=== PATIENT | female | born 1955 | race African-American/Black ===

== ENCOUNTER 2024-10-16 11:19 | Emergency (ER) | payer MEDICARE, MEDICAID ==
[~2024-10-16] VITALS: Ht 162.6 cm; Wt 91.0 kg
[~2024-10-16 11:19] MED LIST: AMLO5TAB88 PO; BENA40TA91 PO; FAMO-135 PO; GLIM4TAB36 PO; LIP40 PO; METF-416 PO; METO25TA6 PO; PIOG15TA66 PO; SUCR1TAB30 PO; SULF1TAB47 MT
[2024-10-16 11:27] VITALS: TEMP 36.9; O2SAT 100
[2024-10-16 11:30] VITALS: O2SAT 98
[2024-10-16] MEDS ORDERED: CELE-116 MT (12:22)
[2024-10-16] MEDS ORDERED: CEPH500C2 MT (12:22)
[2024-10-16] MEDS: ACETAMINOPHEN 325MG TABLET PO ONE (12:29)
[2024-10-16 12:30] VITALS: BP 152/61; PULSE 72; RESP 12
[2024-10-16] MEDS: KETOROLAC 30MG/ML VIAL IM ONE (12:30)
== END 2024-10-16 12:57 | disposition home or self-care (01) ==
LOC: ER 11:19
DX: L03.116 Cellulitis of left lower limb (principal); E11.9 Type 2 diabetes mellitus without complications; I10 Essential (primary) hypertension; Z79.84 Long term (current) use of oral hypoglycemic drugs; Z79.899 Other long term (current) drug therapy
CPT/HCPCS: 99283; 96372; J1885

== ENCOUNTER 2024-10-19 13:35 | Emergency (ER) | payer MEDICARE, MEDICAID ==
[~2024-10-19] VITALS: Ht 162.6 cm; Wt 80.0 kg
[~2024-10-19 13:35] MED LIST changes: +CELE-116 MT; +CEPH500C2 MT
[2024-10-19 13:50] VITALS: O2SAT 98
[2024-10-19] MEDS: LIDOCAINE HCL/EPINEPHRINE 1%-EPI 1:100,000 20ML VIAL INFIL ONE (14:15)
[2024-10-19] MEDS: MORPHINE SULFATE 4 MG/ML INJ (FOR IV/IM USE) IM ONE (16:26)
[2024-10-19] MEDS: ONDANSETRON 4MG ODT PO ONE (16:26)
[2024-10-19] MEDS ORDERED: CIPR-263 MT (17:36)
[2024-10-19 18:00] VITALS: BP 165/102; PULSE 76; RESP 18; TEMP 36.9; O2SAT 98
[2024-10-24] MEDS ORDERED: CELE-116 PO (00:44)
[2024-10-25] MEDS ORDERED: PANT40TA51 MT (13:32)
[2024-10-30] MEDS ORDERED: INSLIS SUBCUT (17:10)
[2024-10-30] MEDS ORDERED: CEPH500C2 MT (17:10)
[2024-10-30] MEDS ORDERED: MELA3TAB40 PO (17:10)
[2024-10-30] MEDS ORDERED: LANTUSUD SUBCUT (17:10)
[2024-10-30] MEDS ORDERED: AMLO10TA80 PO (17:10)
[2024-10-30] MEDS ORDERED: DAKIHS TOP (17:10)
[2024-10-30] MEDS ORDERED: LOSA50TA41 PO (17:10)
[2024-11-01] MEDS ORDERED: CLON1PAT11 TP (00:31)
[2024-11-01] MEDS ORDERED: AMLO10TA80 PO (00:32)
[2024-11-06] MEDS ORDERED: METR-167 MT (13:38)
[2024-11-06] MEDS ORDERED: LOSA100T33 PO (13:38)
[2024-11-06] MEDS ORDERED: PANT40TA51 PO (13:38)
[2024-11-06] MEDS ORDERED: SENN1TAB35 PO (13:38)
[2024-11-06] MEDS ORDERED: ONDA-239 PO (13:38)
[2024-11-06] MEDS ORDERED: POLY17PO43 PO (13:38)
[2024-11-06] MEDS ORDERED: NIFE-32 PO (13:38)
== END 2024-10-19 18:00 | disposition home or self-care (01) ==
LOC: ER 13:35 → MERGE 13:35 → ER 18:00
DX: S91.332A Puncture wound without foreign body, left foot, initial encounter (principal); I10 Essential (primary) hypertension; E11.9 Type 2 diabetes mellitus without complications; W18.41XA Slipping, tripping and stumbling without falling due to stepping on object, initial encounter; Y93.89 Activity, other specified; Y92.89 Other specified places as the place of occurrence of the external cause; Y99.8 Other external cause status
CPT/HCPCS: 99283; 10060; 96372; Q0162; J2004; J2270; A4606